=== PATIENT | male | born 1995 | race Two or more races ===

== ENCOUNTER → 2023-10-21 | Outpatient (REF) | payer OTHER ==
[2023-10-21 13:08] LABS: SEMEN APPEARANCE OPAQUE (OPAQUE); SEMEN VISCOSITY LIQUID (LIQUID); SEMEN VOLUME 2.6 ml (2.0-5.0)
[2023-10-21 13:09] LABS: SEMEN pH 8.5 (7.0-8.0); WBC CONCENTRATION <=1 M/ml (<=1 M/ml)
== END ==
LOC: M LAB REF 12:51
PROVIDERS: ATTEND Obstetrics & Gynecology
DX: N46.8 Other male infertility (principal)

== ENCOUNTER → 2024-12-17 | Outpatient (REF) | payer OTHER ==
[2024-12-17 18:46] LABS: BASO # 0.0 10^3/uL (0.0-0.2); BASO % 0.4 % (0.0-1.0); EOS # 0.1 10^3/uL (0.0-0.5); EOS % 1.8 % (0.0-3.0); LYMPH # 1.5 10^3/uL (1.5-5.0); LYMPH % 54.7 % (24.0-44.0); MONO # 0.4 10^3/uL (0.0-0.8); MONO % 15.3 % (2.0-8.0); NEUTROPHILS % 27.8 % (36.0-66.0); PLATELET COUNT, AUTOMATED 199 10^3/uL (150-450)
[2024-12-17 18:48] LABS: ALT/SGPT 19 U/L (7.0-40); AST/SGOT 18 U/L (<34); CALCIUM LEVEL 9.0 MG/DL (8.5-10.1); CARBON DIOXIDE LEVEL 28 MMOL/L (20-31); CHLORIDE LEVEL 105 MMOL/L (98-107); CHOLESTEROL LEVEL 150 MG/DL (<200); CHOLESTEROL RISK RATIO 3.65 (<5); CREATININE FOR GFR 1.13 MG/DL (0.70-1.30); GLOMERULAR FILTRATION RATE > 90.0 (>60); LDL CHOLESTEROL 85.8 MG/DL (<100); NON-HDL-C 109.0 MG/DL; POTASSIUM SERUM 4.3 MMOL/L (3.5-5.1); SODIUM LEVEL 143 MMOL/L (136-145); TRIGLYCERIDES LEVEL 116 MG/DL (<150)
[2024-12-17 19:11] LABS: NEUTROPHILS # 0.8 10^3/uL (1.5-8.5)
[2024-12-17 19:34] LABS: ESTIMATED AVERAGE GLUCOSE 114.0 MG/DL (60-110)
== END ==
LOC: M SFHCLERA 08:46
DX: Z00.00 Encounter for general adult medical examination without abnormal findings (principal)

== ENCOUNTER → 2025-01-11 | Outpatient (CLI) | payer OTHER | LOC: M RAD 14:14 | PROVIDERS: ATTEND Family Medicine | DX: R19.09 Other intra-abdominal and pelvic swelling, mass and lump (principal); K40.90 Unilateral inguinal hernia, without obstruction or gangrene, not specified as recurrent ==

== ENCOUNTER 2025-02-12 10:13 | Day surgery (SDC) | payer OTHER ==
[~2025-02-12] VITALS: Ht 182.9 cm; Wt 85.6 kg
[~2025-02-12 10:13] MED LIST: [UNRECOGNIZED DRUG - CODE] PO
[2025-02-12] MEDS ORDERED: dexAMETHasone 4 MG/ML 1 ML VIAL As Ordered ONE (10:19)
[2025-02-12] MEDS ORDERED: ONDANSETRON 4MG 2ML VIAL As Ordered ONE (10:19)
[2025-02-12] MEDS ORDERED: LIDOCAINE 2% 100 MG/5 ML SDV (FOR ANES.) As Ordered ONE (10:19)
[2025-02-12] MEDS ORDERED: MIDAZOLAM INJ 2 MG/2 ML VIAL As Ordered ONE (10:19)
[2025-02-12] MEDS ORDERED: ROCURONIUM BROMIDE 50MG/5ML VIAL As Ordered ONE (10:19)
[2025-02-12] MEDS ORDERED: LR 1,000 ML IV SCH ×2 (10:25→15:15)
[2025-02-12] MEDS: CelecoXIB 400 MG CAP PO ONE (11:10)
[2025-02-12] MEDS: ceFAZolin SOD 2 GM IV ONCE IV ONE (13:31)
[2025-02-12] MEDS ORDERED: ACETAMINOPHEN 1000MG/100ML IV BAG As Ordered ONE (13:58)
[2025-02-12] MEDS ORDERED: SUGAMMADEX SODIUM 500 MG/5 ML VIAL As Ordered ONE (14:47)
[2025-02-12] MEDS ORDERED: KETOROLAC 30 MG/ML 1 ML VIAL As Ordered ONE (14:48)
[2025-02-12] MEDS: LIDOCAINE 1% SDV 30 ML VIAL As Ordered ONE (14:58)
[2025-02-12] MEDS ORDERED: ONDANSETRON 4MG 2ML VIAL IV PRN (15:15)
[2025-02-12] MEDS ORDERED: HYDROMORPHONE HCL 0.5 MG/0.5 ML SYRINGE IV PRN (15:15)
[2025-02-12 16:30] VITALS: BP 133/84; TEMP 97.5; O2SAT 100
[2025-02-12] MEDS ORDERED: KETOROLAC 30 MG/ML 1 ML VIAL IV SCH (21:00)
== END 2025-02-12 16:51 | disposition home or self-care (01) ==
LOC: M SDC 10:13
PROVIDERS: ATTEND Surgery
DX: K40.90 Unilateral inguinal hernia, without obstruction or gangrene, not specified as recurrent (principal); D17.6 Benign lipomatous neoplasm of spermatic cord
CPT/HCPCS: 49650; C1781; J0131; J0665; J0688; J1100; J1885; J2250; J2405; J3010; S2900